=== PATIENT | female | born 1950 | race Caucasian/White ===

== ENCOUNTER → 2016-12-09 | Outpatient (CLI) | payer MEDICARE ==
--- NOTE | 2016-12-12 10:39 | MM ---
Reason for exam: additional evaluation requested from prior study. History: Patient has history of breast cancer at age 65 and has history of other cancer at age 61. Lumpectomy of the left breast, 2016. Chemotherapy, 2016. Radiation therapy, 2016. Excisional biopsy of the right breast. Physical Findings: Nurse Summary: A 2-3cm nodule in the left breast at 4 o'clock (nurse kp). MG 3D Diag Mammo W/Cad IQRA Bilateral CC and MLO view(s) were taken. Prior study comparison: November 30, 2015, mammogram, performed at [facility]. There are scattered fibroglandular densities. Post surgical and post biopsy scarring left breast. A 1cm focal asymmetry far posteriorly may correspond to the palpable finding and lumpectomy scar. Ultrasound can assess for any residual fluid collection. These results were verbally communicated with the patient and result sheet given to the patient on . ASSESSMENT: Incomplete: need additional imaging evaluation, BI-RAD 0 RECOMMENDATION: Ultrasound of the left breast. 2-4 o'clock.
--- NOTE | 2016-12-12 10:43 | USB ---
Reason for exam: additional evaluation requested from abnormal screening. History: Patient has history of breast cancer at age 65 and has history of other cancer at age 61. Lumpectomy of the left breast, 2016. Chemotherapy, 2016. Radiation therapy, 2016. Excisional biopsy of the right breast. US Breast Limited LT Left breast ultrasound indicates a 0.6 x 0.4 x 0.3cm oval, cystic lesion at 3 o'clock, this is in the region of the palpable area, however the palpable area is larger likely representing surrounding dense tissue and a 0.7 x 0.5 x 0.5cm oval , hypoechoic lesion in the 4 o'clock position for which a biopsy is recommended. These results were verbally communicated with the patient and result sheet given to the patient on 12/09/16. ASSESSMENT: Suspicious, BI-RAD 4 RECOMMENDATION: Surgical consultation and ultrasound core biopsy of the left breast. (4 o'clock) Called Dr. Soto with mammographic findings. Dr. Axel Mustafa's office will call patient with time of appointment. PRELIMINARY REPORT CALLED AND FAXED TO DR. MUSTAFA ON 12/12/16 AT 300/TMP. MTDD
== END | disposition home or self-care (01) ==
LOC: RADMAMWWP 12:35
PROVIDERS: ATTEND Radiology Radiation Oncology
DX: R92.2 Inconclusive mammogram (principal); R92.8 Other abnormal and inconclusive findings on diagnostic imaging of breast; Z85.3 Personal history of malignant neoplasm of breast
CPT/HCPCS: 76642; G0204; G0279

== ENCOUNTER → 2016-12-19 | Outpatient (CLI) | payer MEDICARE ==
--- NOTE | 2016-12-19 13:54 | CT ---
EXAMINATION TYPE: CT ChestAbdPelvis w con DATE OF EXAM: 12/19/2016 1:39 PM COMPARISON: Head CT 01/23/[address] chest June 04, 2012. HISTORY: Lymphoma CT DLP: 760.6 mGycm CONTRAST: CT scan of the chest, abdomen and pelvis is performed with Oral Contrast and with IV Contrast, patien t injected with 100 mL of Omnipaque 300. CT Chest: LUNGS: Basilar subpleural fibrosis. Subpleural nodular density right lower lobe measuring 8 mm. Is li maría elena postinflammatory in nature. Upper lobe linear and nodular postinflammatory changes also apprecia chen. MEDIASTINUM: Thoracic aorta is of normal caliber. The heart is not enlarged. No evidence for mediastinal mass or adenopathy. HILAR STRUCTURES: No evidence for mass. No hilar adenopathy is appreciated. OTHER: No significant abnormality. CONTRAST CT ABDOMEN AND PELVIS FINDINGS: LIVER/GB: There is evidence of hepatic steatosis. No calcified gallstones. No space occupying hepa tic lesion. Biliary tree is of normal caliber. PANCREAS: No inflammation. No distinct mass. SPLEEN: No splenic enlargement. No lesion seen. ADRENALS: No nodule. No thickening. KIDNEYS/BLADDER: No hydronephrosis. No nephrolithiasis. No disctinct renal mass. BOWEL: Normal appendix. Normal bowel caliber. No inflammation. GENITAL ORGANS: Lobulated uterus may reflect underlying leiomyomatous change. No adnexal masses seen. LYMPH NODES: No greater than 1cm abdominal or pelvic lymph nodes are appreciated. AORTA: No significant abnormality. OSSEOUS STRUCTURES: No significant abnormality is seen. OTHER: No significant additional abnormality is seen. IMPRESSION: 1. No evidence for adenopathy within the chest abdomen or pelvis at this time. 2. Hepatic steatosis.
== END | disposition home or self-care (01) ==
LOC: RADCTMAIN 12:54
PROVIDERS: ATTEND Internal Medicine Hematology & Oncology
DX: C85.90 Non-Hodgkin lymphoma, unspecified, unspecified site (principal); K76.89 Other specified diseases of liver
CPT/HCPCS: 71260; 74177; Q9967